=== PATIENT | female | born 1990 | race Caucasian/White ===

== ENCOUNTER 2019-06-14 21:23 | Emergency (ER) | payer OTHER ==
[~2019-06-14] VITALS: Ht 165.1 cm; Wt 54.4 kg
[~2019-06-14 21:23] MED LIST: ACET-8386 PO; CEPH500C16 PO; OXYM20SP1 NS
[2019-06-14 21:49] VITALS: BP 129/77
--- NOTE | 2019-06-14 21:52 | NUR ---
TO LOBBY A/W BED , AMBULATORY
[2019-06-14 22:43] LABS: APPEARANCE,URINE CLEAR (CLEAR); BILIRUBIN,URINE NEGATIVE (NEGATIVE); BLOOD, URINE NEGATIVE (NEGATIVE); COLOR,URINE YELLOW (YELLOW); LEUKOCYTE ESTERASE ,URINE NEGATIVE (NEGATIVE); NITRITE, URINE NEGATIVE (NEGATIVE); PH,URINE 6.5 (5.0-9.0); UGLUCOSE NEGATIVE (NEGATIVE)
--- NOTE | 2019-06-15 01:10 | NUR ---
PATIENT LEFT WITHOUT BEING SEEN BY DR. ALVAREZ. NO FURTHER CARE PROVIDED FOR PATIENT.
== END 2019-06-15 01:10 | disposition left against medical advice (07) ==
LOC: MED 21:23
DX: R51 Headache (principal); R50.9 Fever, unspecified; Z53.21 Procedure and treatment not carried out due to patient leaving prior to being seen by health care provider
CPT/HCPCS: 81003; 99281